=== PATIENT | male | born 1940 | race Two or more races ===

== ENCOUNTER 2021-07-24 08:00 | Outpatient (CLI) | payer OTHER | END 2021-07-24 08:30 | disposition home or self-care (01) | LOC: PPH VACUNA 08:00 | PROVIDERS: ATTEND Emergency Medicine Pediatric Emergency Medicine | DX: Z23 Encounter for immunization (principal) ==

== ENCOUNTER 2024-01-18 17:33 | Emergency (ER) | payer OTHER ==
[~2024-01-18] VITALS: Ht 182.9 cm; Wt 77.1 kg
[2024-01-18] MEDS ORDERED: TAMS0.4C PO (18:25)
[2024-01-18] MEDS ORDERED: PRILOSEC OTC20 MG PO (18:26)
[2024-01-18] MEDS ORDERED: TOPROL XL25 M1 PO (18:26)
[2024-01-18] MEDS ORDERED: COZAAR50 MG PO (18:26)
[2024-01-18 19:35] LABS: HEMATOCRIT 43.9 % (39.0-48.0); HEMOGLOBIN 14.9 g/dL (13-16.00); MEAN CELL VOLUME 91.3 fL (80.0-100.00); MEAN CORPUSCULAR HEMOGLOBIN 31.1 pg (27.00-32.0); PLATELET COUNT 157 K/uL (150-450); RED BLOOD COUNT 4.81 M/uL (4.00-6.00); RED CELL DISTRIBUTION WIDTH 14.8 % (11.5-14.5)
== END 2024-01-18 22:20 | disposition home or self-care (01) ==
LOC: ER 17:33
DX: S09.8XXA Other specified injuries of head, initial encounter (principal); W19.XXXA Unspecified fall, initial encounter; Y93.89 Activity, other specified; Y92.89 Other specified places as the place of occurrence of the external cause; Y99.8 Other external cause status

== ENCOUNTER 2024-03-20 14:20 | Outpatient (CLI) | payer OTHER ==
[~2024-03-20 14:20] MED LIST: COZAAR50 MG PO; PRILOSEC OTC20 MG PO; TAMS0.4C PO; TOPROL XL25 M1 PO
== END 2024-03-20 14:35 | disposition home or self-care (01) ==
LOC: RAD 14:20
DX: S82.64XD Nondisplaced fracture of lateral malleolus of right fibula, subsequent encounter for closed fracture with routine healing (principal)